=== PATIENT | female | born 1965 | race American Indian/Alaskan Native ===

== ENCOUNTER 2020-02-10 00:33 | Emergency (ER) | payer BC, MEDICARE ==
[2020-02-10] MEDS ORDERED: SODIUM CHLORIDE 0.9% 1000 ML IV SOLN IV ONE (01:38)
--- NOTE | 2020-02-10 01:39 | Emergency Department Report ---
ED Shortness of Breath HPI - General Chief Complaint: Upper Respiratory Infection Stated Complaint: SOB Time Seen by Provider: 02/10/20 01:33 Source: EMS Mode of arrival: Wheelchair Limitations: No Limitations - History of Present Illness Initial Comments: Patient is a 54-year-old female that presents emergency room with complaints of shortness of breath, cough, chills x3 days. Patient states she recently had the symptoms approximately a week ago and was admitted to [facility] and's spent 4 days in the hospital and was discharged 3 days ago. Patient states she was found to have a large gluteal abscess that was drained by general surgeon there. Patient states she was placed on antibiotics and given IV antibiotics in the hospital. Patient states that she is now having a foul- smelling discharge from the abscess region and developed a fever for the last 3 days. Patient states he has a past history of diabetes, COPD and asthma. Patient denies a history of CHF. Patient states he is on home O2 for her COPD. Patient states her O2 saturation has been normal at home. Patient states that her shortness of breath is better with rest and worse with exertion. Patient states she is overall not feeling well. MD Complaint: shortness of breath, cough -: Sudden Severity: severe Consistency: constant Improves With: oxygen, rest Worsens With: exertion Known History Of: COPD, asthma Context: recent URI Associated Symptoms: fever, cough Treatments Prior to Arrival: oxygen - Related Data Home Oxygen Therapy: Yes Home Oxygen Amount: 2 Liters Allergies Allergy/AdvReac Type Severity Reaction Status Date / Time codeine Allergy Rash Verified 02/10/20 02:21 Sulfa (Sulfonamide Allergy Rash Verified 02/10/20 02:21 Antibiotics) ED Review of Systems ROS: Stated complaint: SOB Other details as noted in HPI Constitutional: chills, fever, malaise Eyes: denies: eye pain, eye discharge, vision change ENT: denies: ear pain, throat pain Respiratory: cough, shortness of breath. denies: wheezing Cardiovascular: denies: chest pain, palpitations Endocrine: no symptoms reported Gastrointestinal: denies: abdominal pain, nausea, diarrhea Genitourinary: denies: urgency, dysuria, discharge Musculoskeletal: denies: back pain, joint swelling, arthralgia Skin: denies: rash, lesions Neurological: denies: headache, weakness, paresthesias Psychiatric: denies: anxiety, depression Hematological/Lymphatic: denies: easy bleeding, easy bruising ED Past Medical Hx - Past Medical History Previous Medical History?: Yes Hx Diabetes: Yes Hx Asthma: Yes Hx COPD: Yes Additional medical history: home O2. Pacemaker - Surgical History Past Surgical History?: Yes - Family History Family history: no significant - Social History Smoking Status: Never Smoker Substance Use Type: None ED Physical Exam - General Limitations: No Limitations General appearance: alert, in no apparent distress - Head Head exam: Present: atraumatic, normocephalic - Eye Eye exam: Present: normal appearance - ENT ENT exam: Present: mucous membranes moist - Neck Neck exam: Present: normal inspection - Respiratory Respiratory exam: Present: normal lung sounds bilaterally. Absent: respiratory distress - Cardiovascular Cardiovascular Exam: Present: regular rate, normal rhythm. Absent: systolic murmur, diastolic murmur, rubs, gallop - GI/Abdominal GI/Abdominal exam: Present: soft, normal bowel sounds. Absent: distended, tenderness, guarding - Rectal Rectal exam: Present: other (Gluteal cleft abscess with Carol drain in place. Erythema noted at edges.) - Extremities Exam Extremities exam: Present: normal inspection - Back Exam Back exam: Present: normal inspection - Neurological Exam Neurological exam: Present: alert, oriented X3 - Psychiatric Psychiatric exam: Present: normal affect, normal mood - Skin Skin exam: Present: warm, dry, intact, normal color. Absent: rash ED Course Vital Signs 02/10/20 02/10/20 02/10/20 00:46 01:46 02:00 Temperature 99.7 F H Pulse Rate 90 90 87 Respiratory 18 23 19 Rate Blood Pressure 153/131 O2 Sat by Pulse 99 86 Oximetry 02/10/20 02/10/20 02/10/20 02:16 02:30 02:45 Temperature 98.9 F Pulse Rate 90 84 87 Respiratory 16 18 14 Rate Blood Pressure 195/98 O2 Sat by Pulse 94 96 98 Oximetry 02/10/20 02/10/20 02/10/20 03:00 03:16 03:30 Temperature Pulse Rate 87 82 80 Respiratory 17 21 19 Rate Blood Pressure 176/91 176/91 176/91 O2 Sat by Pulse 96 97 97 Oximetry 02/10/20 02/10/20 02/10/20 03:46 04:00 04:16 Temperature Pulse Rate 81 78 80 Respiratory 30 H 30 H 21 Rate Blood Pressure 176/91 182/88 176/91 O2 Sat by Pulse 95 93 96 Oximetry - Reevaluation(s) Reevaluation #1: During the initial evaluation, the patient has requested to be transferred back to [facility]. I informed the patient that we would start work-up here and then I will discuss that possibility with [facility]. 02/10/20 01:33 Reevaluation #2: Patient denies increased shortness of breath. Patient states she still short of breath but has not increased. Patient is already received 2 L of saline and on the chest x-ray shows mild edema. We will hold the last 2 L of saline. 02/10/20 03:01 Reevaluation #3: I discussed all results and clinical findings with patient. I discussed plan of care with patient. Patient agrees with plan of care. Patient is stable for tr ansfer to [facility]. 02/10/20 05:18 - Consultations Consultation #1: I discussed case with hospitalist and hospitalist recommends transfer to [facility] as well. 02/10/20 03:15 Consultation #2: I discussed case with [facility] transfer center and they are going to page the appropriate physicians applications systems engineer. 02/10/20 03:25 I discussed case with general surgery, Dr. lovett. Dr. lovett recommends a Noncon- CT scan of the abdomen and pelvis prior to transfer by Dr. lovett has accepted the patient after the CT is done. 02/10/20 04:20 Dr. Lovett has accepted the patient fully to be transferred to [facility]. Pick states the transfer nurse will contact us here for the room and the transfer details. 02/10/20 05:18 I spoke to the hospital medicine service, Dr. Caldera and Dr. Caldera has also accepted the patient to be transferred to the hospitalist service. 02/10/20 06:06 ED Medical Decision Making - Lab Data Result diagrams: 02/10/20 02:38 02/10/20 02:38 - EKG Data -: EKG Interpreted by Me EKG shows normal: sinus rhythm, axis, intervals, QRS complexes, ST-T waves Rate: normal - EKG Data Interpretation: [facility] - Medical Decision Making Patient is a 54-year-old female that presents emergency room with complaints of shortness of breath, cough, fever, worsening gluteal abscess. Patient recently had an I&D done at [facility]. Patient on initial evaluation requested transfer to [facility]. Patient states she wants to go back there for continuity of care. Patient had a evaluation done for sepsis and acute infection. Patient's WBCs were normal. Patient's lactic acid was elevated. Patient given fluids and antibiotics and her temperature improved. Patient is stable for transfer to [facility]. Patient has been accepted by the hospital medicine and general surgery teams. Patient's lactic acid responded well to treatment. Patient agrees with transfer and plan of care. - Differential Diagnosis Open wound infection, COVID, cough, shortness of breath, abscess Critical Care Time: Yes Critical care time in (mins) excluding proc time.: 35 Critical care attestation.: If time is entered above; I have spent that time in minutes in the direct care of this critically ill patient, excluding procedure time. Critical Care Time: 35 minutes ED Disposition Clinical Impression: SOB (shortness of breath), Cough, Infected open wound, Abscess, Lactic acid acidosis Fever Qualifiers: Fever type: unspecified Qualified Code(s): R50.9 - Fever, unspecified Pulmonary edema Qualifiers: Chronicity: acute Qualified Code(s): J81.0 - Acute pulmonary edema Disposition: DC/TX-70 ANOTHER TYPE HLTHCARE Is pt being admited?: No Does the pt Need Aspirin: No Condition: Critical Time of Disposition: 04:33
[2020-02-10] MEDS ORDERED: CLINDAMYCIN 300 MG/50 mL 300 MG/50 ML BAG IV ONE (02:14)
[2020-02-10 02:53] LABS: Basophils % (Auto) 0.4 % (0.0-1.8); Eosinophils # (Auto) 0.1 K/mm3 (0.0-0.4); Eosinophils % (Auto) 1.2 % (0.0-4.3); Hemoglobin 10.2 gm/dl (10.1-14.3); Lymphocytes # (Auto) 1.2 K/mm3 (1.2-5.4); Lymphocytes % (Auto) 14.3 % (13.4-35.0); Mean Corpuscular HGB Conc 33 % (30-34); Mean Corpuscular Volume 86 fl (79-97); Monocytes # (Auto) 0.8 K/mm3 (0.0-0.8); Monocytes % (Auto) 8.9 % (0.0-7.3); Platelet Count 387 K/mm3 (140-440); Red Blood Count 3.62 M/mm3 (3.65-5.03); Red Cell Distribution Width 16.1 % (13.2-15.2)
[2020-02-10 03:16] LABS: Alanine Aminotransferase 10 units/L (7-56); Albumin 3.3 g/dL (3.9-5); BUN/Creatinine Ratio 14; Blood Urea Nitrogen 13 mg/dL (7-17); Calcium 8.7 mg/dL (8.4-10.2); Hemolysis Index 1
[2020-02-10] MEDS ORDERED: HYDROmorphone 1 MG/1 ML INJ IV ONE (04:04)
[2020-02-10 10:21] VITALS: BP 150/82
== END 2020-02-10 14:30 | disposition other institution (70) ==
LOC: ED 00:33
DX: J81.1 Chronic pulmonary edema (principal); L02.91 Cutaneous abscess, unspecified; R06.02 Shortness of breath; R50.9 Fever, unspecified; R05 Cough; E87.2 Acidosis; E11.9 Type 2 diabetes mellitus without complications; J44.9 Chronic obstructive pulmonary disease, unspecified; Z88.2 Allergy status to sulfonamides; Z88.8 Allergy status to other drugs, medicaments and biological substances
CPT/HCPCS: 36415; 71045; 74176; 80053; 82140; 84484; 85025; 87040; 93005; 96365; 96375; 99285; J1170; J7030; 96361